=== PATIENT | female | born 1995 | race Caucasian/White ===

== ENCOUNTER → 2019-03-30 | Outpatient (CLI) | payer OTHER ==
[~2019-03-30] MED LIST: BIRTH CONTROL; MEDROLDOSEPACK PO; MICROGESTIN1 EAC1 PO; OXYCODONE20 MG/1 M1 PO
--- NOTE | 2019-04-11 12:06 | SLEEP ---
[facility] [address] [place] [address] SLEEP STUDY REPORT Name: SARAH WATSON Room: [facility]#: [id number] Admission: 03/30/19 Attend Phys: Francisco Amezcua Discharge: Date of : 89 Report #: [id number] THIS REPORT FOR: //name// CC: Fay Barnes DO This study has been reviewed in its entirety by a board certified sleep specialist DATE OF SERVICE: 03/31/2019 REFERRING PHYSICIAN: Fay Barnes DO The patient is 23 years old who weighs 181 pounds with a BMI of 25. The patient's [place] score was 8. The patient underwent home sleep study performed at [facility]. Total recording time was 431 minutes. During the night study, the patient had 7 obstructive apneas, no mixed or central apneas and 4 hypopneas. The patient's apnea-hypopnea index for the entire night was 1.6 per hour. Nocturnal oximetry study revealed an average oxygen saturation of 96% with a lowest of 83%, which appeared to be an artifact. Only 0.1 minutes were spent in oxygen saturation less than 90%. Mean heart rate was 59.8 beats per minute. IMPRESSION: 1. No clinically significant sleep disordered breathing. The patient's apnea-hypopnea index for the entire night was 1.6 per hour. 2. No clinically significant nocturnal hypoxia. RECOMMENDATIONS: 1. The patient does not meet the criteria for CPAP initiation. 2. Avoid DRY [employer] T[employer]ER depressants. 3. Cautioned regarding driving or operating heavy machinery when sleepy or sleep deprived. <ELECTRONICALLY SIGNED> By: Marck Rashid MD 04/11/19 [id number] [id number] Rashid MD /nt
== END ==
LOC: M.SLEEPLAB 03-15 17:00
DX: G47.33 Obstructive sleep apnea (adult) (pediatric) (principal)